=== PATIENT | male | born 1975 | race Caucasian/White ===

== ENCOUNTER 2019-07-21 18:00 | Inpatient (IN) | payer OTHER ==
[~2019-07-21] VITALS: Ht 167.6 cm; Wt 83.5 kg
[2019-07-21 22:30] VITALS: BP 150/91
[2019-07-21 22:45] VITALS: BP 150/91
[2019-07-22] MEDS ORDERED: GLYC1TAB12 GT
[2019-07-22] MEDS ORDERED: BISA-79 RC
[2019-07-22] MEDS ORDERED: LABE200T5 GT
[2019-07-22] MEDS ORDERED: ASPI-1169 GT
[2019-07-22] MEDS ORDERED: SPIR25TA6 GT
[2019-07-22] MEDS ORDERED: MAGN400T26 GT
[2019-07-22] MEDS ORDERED: ATOR10TA GT
[2019-07-22] MEDS ORDERED: ENOX40DI SQ
[2019-07-22] MEDS ORDERED: BACL10TA GT
[2019-07-22] MEDS ORDERED: AMLO5TAB4 GT
[2019-07-22] MEDS ORDERED: OMEG1CAP GT
[2019-07-22] MEDS ORDERED: LEVE100S GT
[2019-07-22] MEDS ORDERED: DIPH-530 GT
[2019-07-22] MEDS ORDERED: LACT1TAB20 GT
[2019-07-22] MEDS ORDERED: ACET-73 GT
[2019-07-22] MEDS ORDERED: CHOL200026 GT
[2019-07-22] MEDS ORDERED: SENN8.6T60 GT
[2019-07-22] MEDS ORDERED: ACETAMINOPHEN 325 MG TABLET PO PRN (00:30)
[2019-07-22] MEDS ORDERED: MISCELLANEOUS MED 1 EA EA GT PRN (00:30)
[2019-07-22] MEDS ORDERED: HYDROCODONE/APAP 5/325MG 1 EACH TABLET PO PRN (00:30)
[2019-07-22] MEDS ORDERED: BISACODYL (5 MG) 5 MG TABLET.DR GT PRN (00:30)
[2019-07-22] MEDS ORDERED: MAG HYDROX/AL HYDROX/SIMETH 30 ML UDC PO PRN (00:30)
[2019-07-22] MEDS ORDERED: Z GUARD REMEDY 2 OZ OINT TP PRN (00:30)
[2019-07-22] MEDS ORDERED: ONDANSETRON HCL/PF 4 MG/2 ML VIAL IVP PRN (00:30)
[2019-07-22] MEDS ORDERED: MAGNESIUM HYDROXIDE 30 ML UDC PO PRN (00:30)
[2019-07-22 01:15] LABS: BASOPHILS % (AUTO) 0.2 % (0.0-2.0); HEMATOCRIT 44 % (39-51); HEMOGLOBIN 14.8 g/dL (13.5-17.5); LYMPHOCYTES # (AUTO) 1.8 /CMM (0.8-4.8); LYMPHOCYTES % (AUTO) 23.6 % (20.0-44.0); MEAN CORPUSCULAR HGB CONC 34 g/dl (31.0-36.0); MEAN CORPUSCULAR VOLUME 91 fL (80-96); MONOCYTES # (AUTO) 0.8 /CMM (0.1-1.30); MONOCYTES % (AUTO) 10.2 % (2.0-12.0); NEUTROPHILS # (AUTO) 5.1 /CMM (1.8-8.9); PLATELET COUNT (AUTO) 357 /CMM (150-450); RED BLOOD CELL COUNT(AUTO) 4.82 MIL/uL (4.5-6.0); WHITE BLOOD COUNT (AUTO) 7.8 K/uL (4.3-11.0)
[2019-07-22] MEDS: IV D5/0.45 NACL 1,000 ML IV PRN (01:38)
[2019-07-22 02:00] LABS: ALBUMIN 3.5 g/dL (3.4-5.0); BILIRUBIN,TOTAL 0.6 mg/dL (0.2-1.0); CALCIUM, SERUM 8.9 mg/dL (8.5-10.1); CREATININE 1.4 mg/dL (0.6-1.3); TOTAL PROTEIN, SERUM 7.5 g/dL (6.4-8.2)
[2019-07-22] MEDS: BACLOFEN (10 MG) 10 MG TABLET GT SCH ×4 (05:04→23:06)
[2019-07-22] MEDS: GLYCOPYRROLATE 1 MG TABLET GT SCH ×3 (05:04→21:05)
[2019-07-22] MEDS ORDERED: diphenhydrAMINE HCL ELIX 25 MG/10 ML UDC GT PRN (07:00)
[2019-07-22 08:00] VITALS: BP 141/85
[2019-07-22 09:00] VITALS: BP 150/68
[2019-07-22] MEDS ORDERED: Medication Not On Formulary EA (Omega-3 Fatty Acids/Fish Oil (Fish Oil 1,000 Mg Capsule) GT SCH (09:00)
[2019-07-22] MEDS ORDERED: PANTOPRAZOLE 40 MG VIAL IV SCH (09:00)
[2019-07-22] MEDS ORDERED: LABETALOL HCL 200 MG TABLET GT SCH (09:00)
[2019-07-22] MEDS: AMLODIPINE BESYLATE 5 MG TABLET GT SCH (09:00)
[2019-07-22] MEDS: LEVETIRACETAM SOL (5 ML) 100 MG/ML UDC GT SCH ×2 (09:06→21:05)
[2019-07-22] MEDS: MAGNESIUM OXIDE 400 MG TABLET GT SCH ×2 (09:07→21:06)
[2019-07-22] MEDS: LACTOBACILLUS RHAMNOSUS GG 1 EACH CAP.SPRINK GT SCH (09:07)
[2019-07-22] MEDS: CHOLECALCIFEROL 1,000 UNIT TABLET (VIT D3) GT SCH (09:07)
[2019-07-22] MEDS: SPIRONOLACTONE 25 MG TABLET GT SCH (09:07)
[2019-07-22] MEDS: LABETALOL HCL (100MG) 100 MG TABLET GT SCH ×2 (09:08→21:06)
[2019-07-22] MEDS: SENNOSIDES 8.6 MG TABLET GT SCH (09:08)
[2019-07-22 16:00] VITALS: BP 137/86
[2019-07-22] MEDS: PANTOPRAZOLE 40 MG VIAL IV SCH (17:00)
[2019-07-22 20:00] VITALS: BP 149/88
[2019-07-22] MEDS ORDERED: ATORVASTATIN 10 MG TABLET GT SCH (22:00)
[2019-07-22] MEDS ORDERED: ENOXAPARIN SODIUM 40 MG/0.4 ML DISP.SYRIN SQ SCH (22:00)
[2019-07-22 22:30] VITALS: BP 122/91
[2019-07-23] MEDS: GLYCOPYRROLATE 1 MG TABLET GT SCH ×2 (05:12→12:33)
[2019-07-23] MEDS: BACLOFEN (10 MG) 10 MG TABLET GT SCH ×2 (05:12→12:33)
[2019-07-23] MEDS: IV D5/0.45 NACL 1,000 ML IV PRN (05:25)
[2019-07-23 06:19] LABS: BASOPHILS % (AUTO) 0.6 % (0.0-2.0); EOSINOPHILS % (AUTO) 3.9 % (0.0-6.0); HEMATOCRIT 39 % (39-51); HEMOGLOBIN 13.2 g/dL (13.5-17.5); LYMPHOCYTES # (AUTO) 1.5 /CMM (0.8-4.8); LYMPHOCYTES % (AUTO) 22.8 % (20.0-44.0); MEAN CORPUSCULAR HGB CONC 34 g/dl (31.0-36.0); MEAN CORPUSCULAR VOLUME 91 fL (80-96); MONOCYTES # (AUTO) 0.8 /CMM (0.1-1.30); MONOCYTES % (AUTO) 11.3 % (2.0-12.0); NEUTROPHILS # (AUTO) 4.1 /CMM (1.8-8.9); NEUTROPHILS % (AUTO) 61.4 % (43.0-81.0); PLATELET COUNT (AUTO) 318 /CMM (150-450); RED BLOOD CELL COUNT(AUTO) 4.33 MIL/uL (4.5-6.0); WHITE BLOOD COUNT (AUTO) 6.7 K/uL (4.3-11.0)
[2019-07-23 06:38] LABS: CALCIUM, SERUM 8.4 mg/dL (8.5-10.1); CREATININE 1.1 mg/dL (0.6-1.3); MAGNESIUM 1.9 mg/dL (1.8-2.4); PHOSPHORUS 3.2 mg/dL (2.5-4.9); POTASSIUM 3.6 mmol/L (3.5-5.1)
[2019-07-23 08:00] VITALS: BP 125/76
[2019-07-23] MEDS: LACTOBACILLUS RHAMNOSUS GG 1 EACH CAP.SPRINK GT SCH (08:19)
[2019-07-23] MEDS: MAGNESIUM OXIDE 400 MG TABLET GT SCH (08:19)
[2019-07-23] MEDS: LEVETIRACETAM SOL (5 ML) 100 MG/ML UDC GT SCH (08:19)
[2019-07-23] MEDS: SPIRONOLACTONE 25 MG TABLET GT SCH (08:19)
[2019-07-23] MEDS: SENNOSIDES 8.6 MG TABLET GT SCH (08:20)
[2019-07-23] MEDS: LABETALOL HCL (100MG) 100 MG TABLET GT SCH (08:20)
[2019-07-23] MEDS: CHOLECALCIFEROL 1,000 UNIT TABLET (VIT D3) GT SCH (08:20)
[2019-07-23 08:36] VITALS: BP 125/76
[2019-07-23] MEDS: AMLODIPINE BESYLATE 5 MG TABLET GT SCH (08:36)
[2019-07-23] MEDS: PANTOPRAZOLE 40 MG VIAL IV SCH (08:49)
== END 2019-07-23 13:05 | DRG 253 ==
LOC: MED 22:24
PROVIDERS: ADMIT Internal Medicine; ATTEND Internal Medicine
DX: K92.2 Gastrointestinal hemorrhage, unspecified (principal); N17.0 Acute kidney failure with tubular necrosis; G93.40 Encephalopathy, unspecified; G93.1 Anoxic brain damage, not elsewhere classified; J96.10 Chronic respiratory failure, unspecified whether with hypoxia or hypercapnia; R53.2 Functional quadriplegia; G40.909 Epilepsy, unspecified, not intractable, without status epilepticus; R13.10 Dysphagia, unspecified; Z93.1 Gastrostomy status; Z93.0 Tracheostomy status; Z79.82 Long term (current) use of aspirin; Z79.899 Other long term (current) drug therapy; Z86.73 Personal history of transient ischemic attack (TIA), and cerebral infarction without residual deficits; K21.9 Gastro-esophageal reflux disease without esophagitis; I12.9 Hypertensive chronic kidney disease with stage 1 through stage 4 chronic kidney disease, or unspecified chronic kidney disease; N18.9 Chronic kidney disease, unspecified
CPT/HCPCS: 31720; 36415; 71045-TC; 80048-TC; 80053-TC; 83735-TC; 84100-TC; 85025-TC; 85730-TC; 87081-TC; A4623; A7526; C9113; G0378; J1953; J3490

== ENCOUNTER 2019-08-11 00:44 | Inpatient (IN) | payer OTHER ==
[~2019-08-11] VITALS: Ht 172.7 cm; Wt 82.6 kg
[~2019-08-11 00:44] MED LIST: ACET-73 GT; AMLO5TAB4 GT; ASPI-1169 GT; ATOR10TA GT; BACL10TA GT; BISA-79 RC; CHOL200026 GT; DIPH-530 GT; ENOX40DI SQ; GLYC1TAB12 GT; LABE200T5 GT; LACT1TAB20 GT; LEVE100S GT; MAGN400T26 GT; OMEG1CAP GT; SENN8.6T60 GT; SPIR25TA6 GT
[2019-08-11 02:54] VITALS: BP 146/101
--- NOTE | 2019-08-11 02:54 | NUR ---
PATIENT ARRIVED TO UNIT. PLACED IN BED 316 BED 2 ADMITTED TO MED SURG TO [facility] FOR N/V. PATIENT SATURATING AT 95% ON RA WITH PORTEX 6 TRACH . PATIENT HAS GTUBE 16 CROATIAN PATENT. PATIENT VOMITED SMALL AMOUNT OF BLACK LIQUID. GTUBE CHECKED WITH RESIDUAL OF 100 ML OF BLACK THICK STOMACH CONTENTS. PATIENT IN NO APPARENT RESP DISTRESS. VSS. PT NOTED TO BE MILDLY DIAPHORETIC AND HR ELEVATED AT 129. WILL CONT TO MONITOR.
[2019-08-11] MEDS ORDERED: INSU100I26 SQ (03:25)
[2019-08-11] MEDS ORDERED: AMLO10TA7 PO (03:25)
[2019-08-11] MEDS ORDERED: BISA10SU61 RC (03:25)
[2019-08-11] MEDS ORDERED: RANI300T7 GT (03:25)
[2019-08-11] MEDS ORDERED: DIPH50CA37 GT (03:25)
[2019-08-11] MEDS ORDERED: MAGN400O21 GT (03:25)
[2019-08-11 03:35] VITALS: BP 146/107
--- NOTE | 2019-08-11 03:50 | NUR ---
JOZEF PAGED FOR ADMISSION ORDERS.
--- NOTE | 2019-08-11 03:56 | NUR ---
ATTEMPTED TO CALL ARIA COYLE MOTHER TO INFORM OF SONS ADMISSION TO [facility]. LEFT CALL BACK NUMBER.
--- NOTE | 2019-08-11 03:59 | NUR ---
CALL MADE TO BEVERLEY COYLE PATIENT BROTHER TO INFORM OF ADMISSION. MESSAGE LEFT AND ASKED FOR CALL BACK.
[2019-08-11] MEDS ORDERED: MAGNESIUM HYDROXIDE 30 ML UDC PO PRN (04:00)
[2019-08-11] MEDS ORDERED: Z GUARD REMEDY 2 OZ OINT TP PRN (04:00)
[2019-08-11] MEDS ORDERED: MAG HYDROX/AL HYDROX/SIMETH 30 ML UDC PO PRN (04:00)
[2019-08-11] MEDS ORDERED: ACETAMINOPHEN 325 MG TABLET PO PRN (04:00)
[2019-08-11] MEDS ORDERED: BISACODYL SUPP (10 MG) 10 MG/SUPP.RECT SUPP.RECT RC PRN (04:00)
[2019-08-11] MEDS ORDERED: ONDANSETRON HCL/PF 4 MG/2 ML VIAL IVP PRN (04:00)
--- NOTE | 2019-08-11 04:10 | NUR ---
JOZEF CALLED BACK. UPDATED ON PATIEN CONDITION STATES HE WILL INPUT ADMISSION ORDERS.
--- NOTE | 2019-08-11 05:54 | NUR ---
PATIENT RECEIVED ON ADMISSION WITH PORTEX #6 TRACH TUBE AND PLACED ON 28% AEROSOL T-TUBE. SUCTIONED FOR MINIMAL, THIN, YELLOW SECRETIONS. AMBU BAG AT BEDSIDE. Addendum: 08/11/19 at 0556 by MANDIE GOMEZ RT Amended: Links added.
--- NOTE | 2019-08-11 06:44 | NUR ---
PHARMACY CALLED ABOUT ACCUCHECKS PATIENT GIVEN TYLENOL FOR MINOR PAIN. PHARMACY CALLED AND IS CONCERNED WITH ACCUCHECKS NOT BEING ORDERED. PATIENT HAS VIRA HOLCOMB AT HS. WILL ENDORSE TO AM SHIFT TO FU WITH MD. PATIENT MEDICATED PER HIS REQUEST TYLENOL FOR PAIN IN LEGS. FLACC OF 3 PATIENT NODS AND LOOKS AT LEGS AND WIGGLES LEGS. WHEN ASKED IF HE IS IN PAIN.
[2019-08-11 06:57] LABS: BASOPHILS % (AUTO) 0.6 % (0.0-2.0); EOSINOPHILS % (AUTO) 0.2 % (0.0-6.0); HEMATOCRIT 44 % (39-51); HEMOGLOBIN 14.5 g/dL (13.5-17.5); LYMPHOCYTES # (AUTO) 0.9 /CMM (0.8-4.8); LYMPHOCYTES % (AUTO) 11.8 % (20.0-44.0); MEAN CORPUSCULAR HGB CONC 33 g/dl (31.0-36.0); MEAN CORPUSCULAR VOLUME 90 fL (80-96); MONOCYTES # (AUTO) 0.7 /CMM (0.1-1.30); MONOCYTES % (AUTO) 9.4 % (2.0-12.0); NEUTROPHILS # (AUTO) 6.1 /CMM (1.8-8.9); PLATELET COUNT (AUTO) 403 /CMM (150-450); RED BLOOD CELL COUNT(AUTO) 4.84 MIL/uL (4.5-6.0); WHITE BLOOD COUNT (AUTO) 7.9 K/uL (4.3-11.0)
[2019-08-11 07:16] LABS: ALBUMIN 3.3 g/dL (3.4-5.0); BILIRUBIN,TOTAL 0.5 mg/dL (0.2-1.0); CALCIUM, SERUM 8.7 mg/dL (8.5-10.1); CREATININE 1.2 mg/dL (0.6-1.3); MAGNESIUM 1.8 mg/dL (1.8-2.4); PHOSPHORUS 1.9 mg/dL (2.5-4.9); POTASSIUM 3.5 mmol/L (3.5-5.1); TOTAL PROTEIN, SERUM 7.8 g/dL (6.4-8.2)
[2019-08-11 07:23] LABS: THYROID STIMULATING HORMONE 1.443 uIU/mL (0.358-3.74)
[2019-08-11] MEDS ORDERED: PANTOPRAZOLE 40 MG VIAL IV SCH (07:30)
--- NOTE | 2019-08-11 08:15 | NUR ---
RN OPENING NOTES PT AWAKE IN BED. PATIENT NON VERBAL. NO APPARENT S/S OF PAIN, DISTRESS OR SOB AT THIS TIME. PT HAS CLAMPED GTUBE AND TRACH. PT HAS RIGHT HAND #22 INTACT AND PATENT. SAFETY PRECAUTIONS IN PLACE, BED IN LOWEST LOCKED POSITION, X2 SIDE RAILS UP AND CALL LIGHT WITHIN REACH. WILL CONTINUE TO MONITOR.
[2019-08-11] MEDS: AMLODIPINE BESYLATE 10 MG TABLET PO SCH (08:28)
[2019-08-11] MEDS ORDERED: ACET-73 GT (09:03)
[2019-08-11] MEDS ORDERED: MULT-439 PO (09:03)
[2019-08-11] MEDS ORDERED: DEXT15DR6 OP (09:03)
[2019-08-11] MEDS ORDERED: ACET1TAB12 GT (09:03)
[2019-08-11] MEDS ORDERED: FENO145T45 PO (09:03)
[2019-08-11] MEDS ORDERED: CHLO473M3 MM (09:03)
[2019-08-11 09:14] VITALS: BP 129/97
[2019-08-11] MEDS ORDERED: Sodium Phosphate 7.5 MMOL in IV D5W 100 ML IV ONE (10:00)
[2019-08-11] MEDS ORDERED: DEXTROSE 50%-WATER 50 ML DISP.SYRIN IV PRN ×2 (11:00)
[2019-08-11] MEDS: BLOOD SUGAR DIAGNOSTIC 1 EACH STRIP IN SCH ×2 (11:13→18:23)
[2019-08-11] MEDS ORDERED: BLOOD SUGAR DIAGNOSTIC 1 EACH STRIP IN SCH (12:00)
[2019-08-11 12:05] LABS: BASOPHILS % (AUTO) 1.1 % (0.0-2.0); EOSINOPHILS % (AUTO) 0.1 % (0.0-6.0); HEMATOCRIT 44 % (39-51); LYMPHOCYTES # (AUTO) 0.7 /CMM (0.8-4.8); LYMPHOCYTES % (AUTO) 8.6 % (20.0-44.0); MEAN CORPUSCULAR HGB CONC 34 g/dl (31.0-36.0); MEAN CORPUSCULAR VOLUME 90 fL (80-96); MONOCYTES # (AUTO) 0.6 /CMM (0.1-1.30); NEUTROPHILS # (AUTO) 7.2 /CMM (1.8-8.9); NEUTROPHILS % (AUTO) 83.2 % (43.0-81.0); PLATELET COUNT (AUTO) 382 /CMM (150-450); RED BLOOD CELL COUNT(AUTO) 4.84 MIL/uL (4.5-6.0); WHITE BLOOD COUNT (AUTO) 8.6 K/uL (4.3-11.0)
[2019-08-11 12:06] LABS: BASOPHILS # (AUTO) 0.1 /CMM (0.0-0.2)
[2019-08-11 12:23] LABS: CALCIUM, SERUM 8.7 mg/dL (8.5-10.1); CREATININE 1.2 mg/dL (0.6-1.3); MAGNESIUM 1.7 mg/dL (1.8-2.4); POTASSIUM 3.8 mmol/L (3.5-5.1)
[2019-08-11] MEDS ORDERED: NA PHOS,M-B/NA PHOS,DI-BA 1 EA ENEMA RC PRN (14:30)
[2019-08-11] MEDS ORDERED: IV D5/0.45 NACL 1,000 ML IV ONE (16:30)
[2019-08-11] MEDS: PANTOPRAZOLE 40 MG VIAL IV SCH (16:30)
--- NOTE | 2019-08-11 19:20 | NUR ---
RN MS OPENING NOTES RECEIVED PATIENT IN BED AWAKE ALERT AND ORIENTED TO SELF ABLE TO MAKE SIMPLE NEEDS KNOWN WITH NON VERBAL CUES. ON TRACH COOL AEROSOL INTACT AND PATENT, RESPIRATIONS EVEN AND UNLABORED WITH EQUAL RISE AND FALL OF CHEST, DENIES ANY PAIN OR DISCOMFORT AT THIS TIME, HEAD OF BED ELEVATED FOR ASPIRATION PRECAUTIONS, GTUBE CONNECTED TO LOW INTERMITTENT SUCTION ORDERED, IV SITE TO RIGHT HAND #22G INTACT AND PATENT NO REDNESS, NO INFILTRATION PRESENT, IVF RUNNING ORDERED, PATIENT IS NPO AND HOLD GT MEDS CLARIFIED WITH THUY. PER TAMRA LUGO NEW ORDER FOR FLEET ENEMA X 2 ONCE. ORIENTED TO STAFF AND CALL LIGHT AND KEPT WITHIN REACH, SAFETY PRECAUTIONS IN PLACE,ALL NEEDS ATTENDED WILL CONTINUE TO MONITOR AND ATTEND TO NEEDS.
--- NOTE | 2019-08-11 19:27 | NUR ---
RN CLOSING NOTES PT AWAKE IN BED. PATIENT NON VERBAL. NO APPARENT S/S OF PAIN, DISTRESS OR SOB DURING SHIFT. INFORMED KELP OR SEAGRASS GATHERER CHIRAG OF COFFEE GROUND EMESIS NOTED IN THE MORNING. PT HAS TRACH CONNECTED TO COOL AEROSOL. G TUBE CONNECTED TO INTERMITTED LOW SUCTIONING. PT HAS RIGHT HAND #22 INTACT AND RUNNING D5NS @50 ML/HR. SAFETY PRECAUTIONS IN PLACE, BED IN LOWEST LOCKED POSITION, X3 SIDE RAILS UP AND CALL LIGHT WITHIN REACH. WILL ENDORSE TO STEEL WELDER NURSE FOR CONTINUITY OF CARE.
[2019-08-11] MEDS ORDERED: NA PHOS,M-B/NA PHOS,DI-BA 1 EA ENEMA RC ONE (19:30)
[2019-08-11 20:00] VITALS: BP 134/95
[2019-08-11] MEDS: INSULIN GLARGINE, 100 UNIT/ML CARTRIDGE SQ SCH (22:00)
[2019-08-11] MEDS ORDERED: POLYETHYLENE GLYCOL 3350 17 GM POWD.PACK PO SCH (22:00)
--- NOTE | 2019-08-11 22:52 | NUR ---
RN MS NOTES LANTUS HELD ACCUCHECK 137 PATIENT IS NPO DIAGNOSIS.
[2019-08-11 23:37] LABS: OCCULT BLOOD STOOL POSITIVE (NEGATIVE)
[2019-08-12] MEDS: BLOOD SUGAR DIAGNOSTIC 1 EACH STRIP IN SCH ×4 (01:03→18:29)
[2019-08-12] MEDS: INSULIN REGULAR, HUMAN 100 UNIT/ML 3 ML VIAL SQ PRN ×2 (01:03→05:35)
--- NOTE | 2019-08-12 06:26 | NUR ---
RN MS OPENING NOTES PATIENT IN BED AWAKE ALERT AND ORIENTED TO SELF ABLE TO MAKE SIMPLE NEEDS KNOWN WITH NON VERBAL CUES. ON TRACH COOL AEROSOL INTACT AND PATENT, RESPIRATIONS EVEN AND UNLABORED WITH EQUAL RISE AND FALL OF CHEST, DENIES ANY PAIN OR DISCOMFORT AT THIS TIME, HEAD OF BED ELEVATED FOR ASPIRATION PRECAUTIONS, GTUBE CONNECTED TO LOW INTERMITTENT SUCTION ORDERED 100 CC CLEAR/YELLOW NOTED IN SUCTION, IV SITE TO RIGHT HAND #22G INTACT AND PATENT NO REDNESS, NO INFILTRATION PRESENT, IVF RUNNING ORDERED, PATIENT IS NPO. PATIENT HAD LARGE X2 BM AND STOOL SAMPLE COLLECTED ORDERED. CALL LIGHT KEPT WITHIN REACH, SAFETY PRECAUTIONS IN PLACE,ALL NEEDS ATTENDED WILL CONTINUE TO MONITOR AND ATTEND TO NEEDS AND ENDORSE TO NEXT SHIFT. SKIN REMAINS INTACT HEELS OFFLOADED.SCD'S IN PLACE.SPO2 MONITOR IN PLACE.
[2019-08-12 07:32] LABS: CALCIUM, SERUM 8.4 mg/dL (8.5-10.1); CREATININE 1.2 mg/dL (0.6-1.3); PHOSPHORUS 2.9 mg/dL (2.5-4.9); POTASSIUM 3.5 mmol/L (3.5-5.1)
[2019-08-12 07:37] LABS: BASOPHILS % (AUTO) 0.4 % (0.0-2.0); EOSINOPHILS % (AUTO) 0.1 % (0.0-6.0); HEMATOCRIT 40 % (39-51); HEMOGLOBIN 13.2 g/dL (13.5-17.5); LYMPHOCYTES # (AUTO) 1.1 /CMM (0.8-4.8); LYMPHOCYTES % (AUTO) 9.9 % (20.0-44.0); MEAN CORPUSCULAR HGB CONC 33 g/dl (31.0-36.0); MEAN CORPUSCULAR VOLUME 91 fL (80-96); MONOCYTES # (AUTO) 1.1 /CMM (0.1-1.30); MONOCYTES % (AUTO) 10.4 % (2.0-12.0); NEUTROPHILS # (AUTO) 8.6 /CMM (1.8-8.9); NEUTROPHILS % (AUTO) 79.2 % (43.0-81.0); PLATELET COUNT (AUTO) 317 /CMM (150-450); RED BLOOD CELL COUNT(AUTO) 4.38 MIL/uL (4.5-6.0); WHITE BLOOD COUNT (AUTO) 10.9 K/uL (4.3-11.0)
[2019-08-12 08:00] VITALS: BP 134/78
--- NOTE | 2019-08-12 08:03 | NUR ---
RN CLOSING NOTES PT AWAKE IN BED. PATIENT NON VERBAL. NO APPARENT S/S OF PAIN, DISTRESS OR SOB DURING SHIFT. PT HAS TRACH CONNECTED TO COOL AEROSOL. G TUBE CONNECTED TO INTERMITTENT LOW SUCTIONING. PT HAS RIGHT HAND #22 INTACT AND RUNNING D5NS @50 ML/HR. SAFETY PRECAUTIONS IN PLACE, BED IN LOWEST LOCKED POSITION, X3 SIDE RAILS UP AND CALL LIGHT WITHIN REACH. WILL CONTINUE TO MONITOR.
[2019-08-12] MEDS: AMLODIPINE BESYLATE 10 MG TABLET PO SCH (08:24)
[2019-08-12] MEDS: SENNOSIDES/DOCUSATE SODIUM 1 TAB TABLET PO SCH (08:24)
[2019-08-12] MEDS: PANTOPRAZOLE 40 MG VIAL IV SCH ×2 (08:26→17:04)
--- NOTE | 2019-08-12 11:39 | NUR ---
WOUND CARE CONSULT: PT PRESENTS WITH INCONTINENCE AND IMMOBILITY WITH TRACH. SCARRINGNOTED TO LEFT HIP AREA, UNDER TRACH SITE AND AROUND G TUBE SITE, PRESENT ON ADMISSION. RECOMMENDATIONS MADE FOR SKIN PROTECTION AND DISCUSSED WITH NURSING STAFF. FIRST STEP LOW AIRLOSS MATTRESS ORDERED. CURRENT BULMARO SCORE IS 9. WILL SEE PRN. ZABALA IN AGREEMENT WITH PLAN OF CARE. Addendum: 08/12/19 at 1142 by AKIKO HUGGINS WNDNU Amended: Links added.
[2019-08-12] MEDS ORDERED: IV D5/0.45 NACL 1,000 ML IV PRN (14:30)
[2019-08-12 16:00] VITALS: BP 139/84
--- NOTE | 2019-08-12 19:05 | NUR ---
RN MS OPENING NOTES RECEIVED PATIENT IN BED AWAKE ALERT AND ORIENTED TO SELF ABLE TO MAKE SIMPLE NEEDS KNOWN WITH NON VERBAL CUES. ON TRACH COOL AEROSOL INTACT AND PATENT, RESPIRATIONS EVEN AND UNLABORED WITH EQUAL RISE AND FALL OF CHEST, DENIES ANY PAIN OR DISCOMFORT AT THIS TIME, HEAD OF BED ELEVATED FOR ASPIRATION PRECAUTIONS, GTUBE CONNECTED TO LOW INTERMITTENT SUCTION ORDERED, IV SITE TO RIGHT HAND #22G INTACT AND PATENT NO REDNESS, NO INFILTRATION PRESENT, IVF RUNNING ORDERED, PATIENT IS NPO DIAGNOSIS . ORIENTED TO STAFF AND CALL LIGHT AND KEPT WITHIN REACH, SAFETY PRECAUTIONS IN PLACE,ALL NEEDS ATTENDED WILL CONTINUE TO MONITOR AND ATTEND TO NEEDS. REMAINS COMFORTABLE AT THIS TIME, ON CONTINUOUS PULSE OX MONITORING, WNL 99%
--- NOTE | 2019-08-12 19:22 | NUR ---
RN CLOSING NOTES PT AWAKE IN BED. PATIENT NON VERBAL. NO APPARENT S/S OF PAIN, DISTRESS OR SOB DURING SHIFT. PT HAS TRACH CONNECTED TO COOL AEROSOL. G TUBE CONNECTED TO INTERMITTENT LOW SUCTIONING. PT HAS RIGHT HAND #22 INTACT AND RUNNING D5NS @50 ML/HR. CONSENT FOR EGD SIGNED BY MOTHER. SAFETY PRECAUTIONS IN PLACE, BED IN LOWEST LOCKED POSITION, X3 SIDE RAILS UP AND CALL LIGHT WITHIN REACH. WILL ENDORSE TO SPINNING MULE OPERATOR NURSE FOR CONTINUITY OF CARE.
[2019-08-12 20:00] VITALS: BP 132/79
[2019-08-12 20:47] VITALS: BP 132/74
[2019-08-12] MEDS: POLYETHYLENE GLYCOL 3350 17 GM POWD.PACK PO SCH (21:58)
[2019-08-12] MEDS: INSULIN GLARGINE, 100 UNIT/ML CARTRIDGE SQ SCH (22:00)
[2019-08-13] MEDS: INSULIN REGULAR, HUMAN 100 UNIT/ML 3 ML VIAL SQ PRN ×2 (00:38→05:46)
[2019-08-13] MEDS: BLOOD SUGAR DIAGNOSTIC 1 EACH STRIP IN SCH ×4 (00:38→17:21)
--- NOTE | 2019-08-13 06:37 | NUR ---
RN MS CLOSING NOTES PATIENT IN BED AWAKE ALERT AND ORIENTED TO SELF ABLE TO MAKE SIMPLE NEEDS KNOWN WITH NON VERBAL CUES. ON TRACH COOL AEROSOL INTACT AND PATENT, RESPIRATIONS EVEN AND UNLABORED WITH EQUAL RISE AND FALL OF CHEST, DENIES ANY PAIN OR DISCOMFORT AT THIS TIME, HEAD OF BED ELEVATED FOR ASPIRATION PRECAUTIONS, GTUBE CONNECTED TO LOW INTERMITTENT SUCTION ORDERED, TRACH CARE AND SUCTION PROVIDED ORDERED,IV SITE TO LEFT HAND #20G INTACT AND PATENT NO REDNESS, NO INFILTRATION PRESENT, IVF RUNNING ORDERED, PATIENT IS NPO DIAGNOSIS . CALL LIGHT KEPT WITHIN REACH, SAFETY PRECAUTIONS IN PLACE,ALL NEEDS ATTENDED WILL CONTINUE TO MONITOR AND ATTEND TO NEEDS. REMAINS COMFORTABLE AT THIS TIME, ON CONTINUOUS PULSE OX MONITORING, WNL 99%, FREQUENT REPOSITIONING PROVIDED SKIN REMAINS INTACT, NO REDNESS PRESENT, REMAINS COMFORTABLE WILL CONTINUE TO MONITOR AND ENDORSE TO NEXT SHIFT.
[2019-08-13 08:00] VITALS: BP 147/83
[2019-08-13 08:26] LABS: BASOPHILS % (AUTO) 0.5 % (0.0-2.0); EOSINOPHILS % (AUTO) 1.6 % (0.0-6.0); HEMATOCRIT 38 % (39-51); HEMOGLOBIN 12.7 g/dL (13.5-17.5); LYMPHOCYTES # (AUTO) 1.3 /CMM (0.8-4.8); LYMPHOCYTES % (AUTO) 19.3 % (20.0-44.0); MEAN CORPUSCULAR HGB CONC 34 g/dl (31.0-36.0); MEAN CORPUSCULAR VOLUME 90 fL (80-96); MONOCYTES # (AUTO) 0.8 /CMM (0.1-1.30); MONOCYTES % (AUTO) 10.9 % (2.0-12.0); NEUTROPHILS # (AUTO) 4.7 /CMM (1.8-8.9); NEUTROPHILS % (AUTO) 67.7 % (43.0-81.0); PLATELET COUNT (AUTO) 295 /CMM (150-450); RED BLOOD CELL COUNT(AUTO) 4.18 MIL/uL (4.5-6.0); WHITE BLOOD COUNT (AUTO) 6.9 K/uL (4.3-11.0)
[2019-08-13 08:46] LABS: CALCIUM, SERUM 8.6 mg/dL (8.5-10.1); CREATININE 1.1 mg/dL (0.6-1.3); MAGNESIUM 1.8 mg/dL (1.8-2.4); PHOSPHORUS 2.8 mg/dL (2.5-4.9); POTASSIUM 3.2 mmol/L (3.5-5.1)
[2019-08-13] MEDS: AMLODIPINE BESYLATE 10 MG TABLET PO SCH ×2 (09:00→10:22)
[2019-08-13] MEDS: SENNOSIDES/DOCUSATE SODIUM 1 TAB TABLET PO SCH ×2 (09:00→10:22)
[2019-08-13] MEDS: PANTOPRAZOLE 40 MG VIAL IV SCH ×2 (10:23→16:32)
[2019-08-13] MEDS: POTASSIUM CL. PREMIX PERIPHER. 50 ML IV SCH ×4 (11:50→14:13)
[2019-08-13 16:00] VITALS: BP 155/80
[2019-08-13] MEDS: SUCRALFATE 1 G/10 ML UDC PO SCH ×2 (16:33→22:00)
--- NOTE | 2019-08-13 19:10 | NUR ---
RN MS OPENING NOTES RECEIVED PATIENT IN BED AWAKE ALERT AND ORIENTED TO X 2 ABLE TO MAKE SIMPLE NEEDS KNOWN WITH NON VERBAL CUES. ON TRACH COOL AEROSOL INTACT AND PATENT, RESPIRATIONS EVEN AND UNLABORED WITH EQUAL RISE AND FALL OF CHEST, DENIES ANY PAIN OR DISCOMFORT AT THIS TIME, HEAD OF BED ELEVATED FOR ASPIRATION PRECAUTIONS, GTUBE CONNECTED TO LOW INTERMITTENT SUCTION ORDERED, TRACH CARE AND SUCTION PROVIDED ORDERED,IV SITE TO LEFT HAND #20G INTACT AND PATENT NO REDNESS, NO INFILTRATION PRESENT, IVF RUNNING ORDERED, PATIENT IS NPO DIAGNOSIS . CALL LIGHT KEPT WITHIN REACH, SAFETY PRECAUTIONS IN PLACE,ALL NEEDS ATTENDED WILL CONTINUE TO MONITOR AND ATTEND TO NEEDS.PATIENT PROVIDED WITH PERINEAL CARE AND REPOSITIONED, REMAINS COMFORTABLE AT THIS TIME, ON CONTINUOUS PULSE OX MONITORING, WNL 98%, SKIN REMAINS INTACT, NO REDNESS PRESENT, REMAINS COMFORTABLE WILL CONTINUE TO MONITOR AND ATTEND TO NEEDS.
[2019-08-13 20:00] VITALS: BP 145/82
--- NOTE | 2019-08-13 20:12 | NUR ---
RN MS NOTES PATIENT C/O PAIN TO LEFT HAND , PER FAMILY AND PATIENT REQUESTING FOR PAIN MEDICATION. PATIENT HAD POTASSIUM REPLACEMENTS THIS AM AND PATIENT C/P PAIN TO LEFT ARM, IV SITE REMAINS INTACT AND PATENT, NO REDNESS , NO INFILTRATION, TALITA JACOBSON MADE AWARE NEW ORDER FOR MORPHINE 2MG IV Q3HR PRN
[2019-08-13] MEDS ORDERED: MORPHINE SULFATE INJ 2 MG/ML DISP.SYRIN IV PRN (20:30)
--- NOTE | 2019-08-13 20:50 | NUR ---
RN MS NOTES MORPHINE PRN GIVEN ORDERED COMPLAINT OF PAIN 8/10 TO LEFT ARM, WILL CONTINUE TO MONITOR FOR EFFECTIVENESS.
[2019-08-13] MEDS: POLYETHYLENE GLYCOL 3350 17 GM POWD.PACK PO SCH (22:00)
[2019-08-13] MEDS: INSULIN GLARGINE, 100 UNIT/ML CARTRIDGE SQ SCH (22:00)
--- NOTE | 2019-08-13 22:21 | NUR ---
rn ms notes medications as scheduled not given npo diagnosis and gtube connected to suction.
[2019-08-14] MEDS: BLOOD SUGAR DIAGNOSTIC 1 EACH STRIP IN SCH ×4 (00:23→17:41)
[2019-08-14] MEDS: INSULIN REGULAR, HUMAN 100 UNIT/ML 3 ML VIAL SQ PRN ×4 (00:24→17:41)
[2019-08-14] MEDS: SUCRALFATE 1 G/10 ML UDC PO SCH ×3 (04:00→16:02)
--- NOTE | 2019-08-14 06:29 | NUR ---
RN MS CLOSING NOTES PATIENT IN BED AWAKE ALERT AND ORIENTED TO X 2 ABLE TO MAKE SIMPLE NEEDS KNOWN WITH NON VERBAL CUES. ON TRACH COOL AEROSOL INTACT AND PATENT, RESPIRATIONS EVEN AND UNLABORED WITH EQUAL RISE AND FALL OF CHEST, DENIES ANY PAIN OR DISCOMFORT AT THIS TIME, PAIN MEDICATION WAS EFFECTIVE,HEAD OF BED ELEVATED FOR ASPIRATION PRECAUTIONS, GTUBE CONNECTED TO LOW INTERMITTENT SUCTION ORDERED TOTAL GASTRIC OUTPUT 200CC BROWN COLOR NOTED AT THE SHIFT NOW COLOR IS CLEAR YELLOW, PATIENT WAS S/P EGD, TRACH CARE AND SUCTION PROVIDED ORDERED,IV SITE TO LEFT HAND #20G INTACT AND PATENT NO REDNESS, NO INFILTRATION PRESENT, IVF RUNNING ORDERED, PATIENT IS NPO DIAGNOSIS . CALL LIGHT KEPT WITHIN REACH, SAFETY PRECAUTIONS IN PLACE,ALL NEEDS ATTENDED WILL CONTINUE TO MONITOR .PATIENT PROVIDED WITH PERINEAL CARE AND REPOSITIONED Q2 HR, REMAINS COMFORTABLE AT THIS TIME, ON CONTINUOUS PULSE OX MONITORING, WNL 98%, SKIN REMAINS INTACT, NO REDNESS PRESENT,HEELS OFFLOADED, REMAINS COMFORTABLE WILL CONTINUE TO MONITOR AND ENDORSE TO NEXT SHIFT.
[2019-08-14 07:09] LABS: BASOPHILS % (AUTO) 0.5 % (0.0-2.0); HEMATOCRIT 38 % (39-51); HEMOGLOBIN 12.5 g/dL (13.5-17.5); LYMPHOCYTES # (AUTO) 1.2 /CMM (0.8-4.8); LYMPHOCYTES % (AUTO) 18.2 % (20.0-44.0); MEAN CORPUSCULAR HGB CONC 33 g/dl (31.0-36.0); MEAN CORPUSCULAR VOLUME 91 fL (80-96); MONOCYTES # (AUTO) 0.7 /CMM (0.1-1.30); MONOCYTES % (AUTO) 9.9 % (2.0-12.0); NEUTROPHILS # (AUTO) 4.7 /CMM (1.8-8.9); NEUTROPHILS % (AUTO) 69.4 % (43.0-81.0); PLATELET COUNT (AUTO) 289 /CMM (150-450); RED BLOOD CELL COUNT(AUTO) 4.19 MIL/uL (4.5-6.0); WHITE BLOOD COUNT (AUTO) 6.7 K/uL (4.3-11.0)
[2019-08-14 07:16] LABS: CALCIUM, SERUM 8.8 mg/dL (8.5-10.1); MAGNESIUM 1.7 mg/dL (1.8-2.4); PHOSPHORUS 2.8 mg/dL (2.5-4.9); POTASSIUM 3.3 mmol/L (3.5-5.1)
--- NOTE | 2019-08-14 07:28 | NUR ---
RN OPENING NOTE PT WAS RECEIVED IN BED AT LOWEST AND LOCKED POSITION WITH SIDE RAILS UP X2, A/O X1-2 NONVERBAL BUT ABLE TO MAKE NEEDS KNOWN, NOTED TO HAVE TRACH PORTEX #6 SATING WELL, NO S/S OF ANY DISTRESS OR PAIN NOTED AT THIS TIME, GTUBE IN PLACE AT LIS, LAST BM 08/12 PER NIGHT RN, IV IS PATENT AND INTACT WITH IVF RUNNING, SAFETY PRECAUTIONS IN PLACE, CALL LIGHT WITHIN REACH, WILL MONITOR ACCORDINGLY
[2019-08-14 08:00] VITALS: BP 141/84
[2019-08-14] MEDS: PANTOPRAZOLE 40 MG VIAL IV SCH ×2 (08:20→16:01)
[2019-08-14] MEDS: SENNOSIDES/DOCUSATE SODIUM 1 TAB TABLET PO SCH (09:00)
[2019-08-14] MEDS: AMLODIPINE BESYLATE 10 MG TABLET PO SCH (09:00)
[2019-08-14] MEDS ORDERED: Magnesium 1GM/D5W 100ML PREMIX PIGGYBACK IV ONE (10:00)
[2019-08-14] MEDS ORDERED: POTASSIUM CHLORIDE 20 MEQ TAB.PRT.SR PO ONE (10:00)
[2019-08-14] MEDS ORDERED: Magnesium 1GM/D5W 100ML PREMIX 100 ML IV SCH (10:00)
--- NOTE | 2019-08-14 10:03 | NUR ---
RN NOTE PER HAND TIER TAMRA BURNETT OKAY TO RESTART TF ONCE DIETARY GIVES RECOMMENDATIONS
--- NOTE | 2019-08-14 10:23 | NUR ---
RN NOTE PAPERWORK IN PATIENT CHART STATED PT TAKES JEVITY 1.2 @ 80ML/HR START AT 6 AM AND TURN OFF AT 11PM, WILL IMPLEMENT AND START TUBE FEEDING ONCE AVAILABLE
[2019-08-14] MEDS ORDERED: JEVITY 1.2 CAL 1,000 ML BOTTLE GT PRN (10:30)
--- NOTE | 2019-08-14 10:45 | NUR ---
RN NOTE POTASSIUM AND MAGNESIUM REPLACED
--- NOTE | 2019-08-14 11:35 | NUR ---
RN NOTE DIETARY CALLED WITH NO ANSWER, MESSAGE WAS LEFT SO TUBE FEEDING CAN BE BROUGHT UP, WILL ADMINISTER ONCE AVAILABLE ON THE FLOOR
--- NOTE | 2019-08-14 11:37 | NUR ---
RN NOTE BLOOD SUGAR WAS NOTED TO BE 115, NO INSULIN NEED OR REQUIRED PER SLIDING SCALE
[2019-08-14] MEDS ORDERED: SUCR1ORA6 PO (15:39)
[2019-08-14] MEDS ORDERED: VANC125C11 PO (15:39)
[2019-08-14] MEDS ORDERED: PANT40TA2 PO (15:39)
[2019-08-14 16:00] VITALS: BP 162/89
[2019-08-14] MEDS ORDERED: VANCOMYCIN HCL 125 MG/2.5 ML ORAL.SUSP PO SCH (18:00)
--- NOTE | 2019-08-14 18:17 | NUR ---
RN CLOSING NOTE PT IN BED AT LOWEST AND LOCKED POSITION WITH SIDE RAILS UP X2, A/O X1-2 NONVERBAL BUT ABLE TO MAKE NEEDS KNOWN, TRACH PORTEX #6 SATING WELL, NO S/S OF ANY DISTRESS OR PAIN NOTED AT THIS TIME, GTUBE IN PLACE WITH TUBE FEEDING RUNNING, KUB JUST DONE, IV IS PATENT AND INTACT WITH IVF RUNNING, SAFETY PRECAUTIONS IN PLACE, CALL LIGHT WITHIN REACH, ALL NEEDS ATTENDED TO, WILL ENDORSE TO NIGHT RN FOR NIKHIL.
--- NOTE | 2019-08-14 18:25 | NUR ---
RN NOTE CHARGE LINH INFORMED ME THAT PT WILL BE GOING TO [facility] AND THAT NURSE VEGETABLE LOADER MACHINE OPERATOR WOULD LIKE FOR US TO CALL AT 9PM IN ORDER TO ENSURE EVERYTHING IS SET UP AND TO ARRANGE TRANSPORT.
--- NOTE | 2019-08-14 19:46 | NUR ---
MS RN RECEIVE PT IN BED PT AWAKE A/O 1-2 NON VERBAL ABLE TO MAKE NEEDS KNOWN, STABLE AND NOT IN DISTRESS. NO SOB. NO C/O OF PAIN. WILL CONT TO MTR
[2019-08-14 20:00] VITALS: BP 153/93
--- NOTE | 2019-08-14 21:00 | NUR ---
SPOKE TO YAMINI PRECIADO [facility] PER YAMINI BED IS AVAILABLE. WILL ARRANGE TRANSPORTATION AND GAVE REPORT TO BANDAR TOUSSAINT PT IS ASSIGNED TO ROOM 6 Addendum: 08/15/19 at 0110 by JACE CANNON RN ([phone]) [id number] [facility] [id number]
--- NOTE | 2019-08-14 22:00 | NUR ---
BEVERLEY LEONIDES (BROTHER) WAS NOTIFIED PT BEING DISCHARGE SPOKE TO HIM AND AWARE OF PLACEMENT. BEVERLEY APPRECIATIVE TO NURSES
--- NOTE | 2019-08-14 22:01 | NUR ---
MS STANLEY VACCINE FLU AND PNA NOT ADMINISTERED NO ORDERS BROTHER PREFERS TO RECEIVE ELSEWHERE. Addendum: 08/15/19 at 0428 by JACE CANNON RN FLU SHOT NO ORDERS. PNA NOT QUALIFIED. BROTHER PREFERS PT TO RECEIVE ELSEWHERE
--- NOTE | 2019-08-15 00:42 | NUR ---
PATIENT DISCHARGE PT PICKED UP BY [facility] VIA GURNEY 2 EMT TO MERGED WITH [facility]. 02 SAT AT 100% PORTEX 6. PT STABLE CONDITION NO S/S OF DISTRESS NOTED, VS STABLE, DISCHARGE INSTRUCTIONS DOCUMENTS WAS PROVIDED TO EMT. CONTINUE MEDICATION PRESCRIPTION HANDED TO EMT PERSONNEL, HEPLOCK WAS REMOVED. ALL BELONGINGS WAS TAKEN. PATIENT LEFT AT 2205, Addendum: 08/15/19 at 0101 by JACE CANNON RN LEFT AT 2205 08/14/19
== END 2019-08-14 22:05 | DRG 241 ==
LOC: MED 02:48
PROVIDERS: ADMIT Registered Nurse; ATTEND Student in an Organized Health Care Education/Training Program
PROC: 0DB58ZX Excision of Esophagus, Via Natural or Artificial Opening Endoscopic, Diagnostic (ICD-10-PCS; principal; 2019-08-13)
DX: K29.81 Duodenitis with bleeding (principal); G93.40 Encephalopathy, unspecified; Z99.11 Dependence on respirator [ventilator] status; J96.10 Chronic respiratory failure, unspecified whether with hypoxia or hypercapnia; R53.2 Functional quadriplegia; A04.72 Enterocolitis due to Clostridium difficile, not specified as recurrent; K56.600 Partial intestinal obstruction, unspecified as to cause; I31.3 Pericardial effusion (noninflammatory); K29.71 Gastritis, unspecified, with bleeding; K22.70 Barrett's esophagus without dysplasia; R13.12 Dysphagia, oropharyngeal phase; K62.89 Other specified diseases of anus and rectum; E11.9 Type 2 diabetes mellitus without complications; I10 Essential (primary) hypertension; K56.41 Fecal impaction; I25.10 Atherosclerotic heart disease of native coronary artery without angina pectoris; K44.9 Diaphragmatic hernia without obstruction or gangrene; K21.0 Gastro-esophageal reflux disease with esophagitis; G40.909 Epilepsy, unspecified, not intractable, without status epilepticus; Z79.82 Long term (current) use of aspirin; Z86.73 Personal history of transient ischemic attack (TIA), and cerebral infarction without residual deficits; Z93.0 Tracheostomy status; E78.5 Hyperlipidemia, unspecified
CPT/HCPCS: 31720; 36415; 71045-TC; 74018; 80048-TC; 80053-TC; 80061-TC; 82272-TC; 82962-TC; 83735-TC; 84100-TC; 84443-TC; 85025-TC; 87045-TC; 87081-TC; 88305-TC; 88313-TC; 88342; 89055; 94640-TC; 94760-TC; 94762-TC; 94799-TC; A4623; A7526; A9563; C9113; G0378; J1815; J2270; J3475; J3480; J3490; J7050; J7060